=== PATIENT | male | born 1945 ===

== ENCOUNTER 2019-06-21 13:27 | Outpatient (RCR) | payer BC | END 2019-07-11 | disposition home or self-care (01) | LOC: WCC 13:27 | DX: L97.919 Non-pressure chronic ulcer of unspecified part of right lower leg with unspecified severity (principal); L97.813 Non-pressure chronic ulcer of other part of right lower leg with necrosis of muscle; E11.628 Type 2 diabetes mellitus with other skin complications; L97.929 Non-pressure chronic ulcer of unspecified part of left lower leg with unspecified severity; L97.823 Non-pressure chronic ulcer of other part of left lower leg with necrosis of muscle; L03.115 Cellulitis of right lower limb; L03.116 Cellulitis of left lower limb | CPT/HCPCS: 11043; 93922 ==

== ENCOUNTER 2019-08-02 12:56 | Outpatient (RCR) | payer BC | END 2019-08-10 | disposition home or self-care (01) | LOC: WCC 12:56 | DX: L97.819 Non-pressure chronic ulcer of other part of right lower leg with unspecified severity (principal); L03.115 Cellulitis of right lower limb; L97.812 Non-pressure chronic ulcer of other part of right lower leg with fat layer exposed; I87.311 Chronic venous hypertension (idiopathic) with ulcer of right lower extremity; E11.622 Type 2 diabetes mellitus with other skin ulcer | CPT/HCPCS: 11043; 87070; 87181; 87205; G0463 ==

== ENCOUNTER 2019-08-07 12:12 | Outpatient (CLI) | payer BC ==
--- NOTE | 2019-08-07 15:19 | Diagnostic Imaging Report ---
Indication: Nonhealing ulcers of both feet. Bilateral leg pain Technique: Grayscale and duplex images of the bilateral lower extremity arteries Comparison: none Findings: On the right, grayscale and duplex images overall demonstrate triphasic waveform with sharp systolic peaks and no diminution of flow velocities distally. The profunda femoral artery waveforms is monophasic and slightly dampened so there may be stenosis at its origin. On the left, grayscale and duplex images demonstrate triphasic are biphasic waveforms above the knee and at the distal posterior tibial and dorsalis pedis artery levels, without diminution of flow velocities distally. However, the mid anterior tibial waveforms appears somewhat flattened and monophasic with slow flow. Question the significance of this given the triphasic appearance of the dorsalis pedis artery waveforms. Possibly artifactual or could indicate variant anatomy. Impression: Findings as noted. No definite evidence of significant lower extremity arterial insufficiency
--- NOTE | 2019-08-07 15:22 | Diagnostic Imaging Report ---
Indication: Left lower extremity pain and swelling Technique: Grayscale and duplex images of the bilateral lower extremity veins. Doppler interrogation of the greater saphenous veins with Valsalva Comparison: none Findings: Bilaterally, grayscale and duplex images demonstrate no evidence of intraluminal thrombus. Normal phasic Doppler waveforms, demonstrating no evidence of intraluminal thrombus and normal compressibility. On the right, with Valsalva, periods of reflux are seen in the right greater saphenous vein relapsing up to 2 seconds. No valvular insufficiency is seen in the deep veins. On the left, with Valsalva periods of reflux are seen in the greater saphenous vein lasting up to 2.3 seconds. Impression: Evidence of bilateral greater saphenous vein valvular insufficiency manifested by areas of venous reflux No evidence of lower extremity deep vein thrombosis or deep vein valvular insufficiency
== END 2019-08-07 14:12 | disposition home or self-care (01) ==
LOC: VAS 12:12
DX: M79.605 Pain in left leg (principal); R22.42 Localized swelling, mass and lump, left lower limb; I87.2 Venous insufficiency (chronic) (peripheral); L97.529 Non-pressure chronic ulcer of other part of left foot with unspecified severity; L97.519 Non-pressure chronic ulcer of other part of right foot with unspecified severity; M79.604 Pain in right leg
CPT/HCPCS: 93925; 93970